=== PATIENT | male | born 1970 | race Caucasian/White ===

== ENCOUNTER 2022-01-31 15:12 | Emergency (ER) | payer OTHER ==
[~2022-01-31 15:12] MED LIST: ANTIBIOTIC
== END 2022-01-31 16:38 | disposition left against medical advice (07) ==
LOC: ER 15:12
DX: Z53.21 Procedure and treatment not carried out due to patient leaving prior to being seen by health care provider (principal)

== ENCOUNTER 2023-09-08 17:42 | Emergency (ER) | payer MEDICAID, OTHER ==
[~2023-09-08] VITALS: Ht 157.5 cm; Wt 72.6 kg
[2023-09-08 18:05] VITALS: O2SAT 99
[2023-09-08] MEDS ORDERED: KETOROLAC 30MG/ML VIAL IM STA (18:27)
[2023-09-08] MEDS ORDERED: IBUP-2029 MT (20:18)
[2023-09-08] MEDS ORDERED: HYDR-4001 MT (20:18)
[2023-09-08] MEDS: KETOROLAC 30MG/ML VIAL IM NR (20:18)
[2023-09-08] MEDS ORDERED: CEPH500C2 MT (20:18)
[2023-09-08 20:38] VITALS: BP 148/74; PULSE 88; RESP 20; TEMP 98
== END 2023-09-08 20:40 | disposition home or self-care (01) ==
LOC: ER 17:42
DX: K61.0 Anal abscess (principal)
CPT/HCPCS: 99285; 76942; 96372; J1885